=== PATIENT | male | born 1960 | race Caucasian/White ===

== ENCOUNTER 2018-06-27 08:59 | Day surgery (SDC) | payer OTHER, SELFPAY ==
--- NOTE | 2018-06-27 | PATH_ITS ---
[facility] Accession Number: [id number] . 01 Material submitted: . COLON POLYP AT 25CM . 02 Diagnosis: Colon, Polyp at 25 cm, Biopsy: Serrated lesion, favor sessile serrated adenoma. MRV/06/28/2018 . 02 Electronically signed: . Janiya Maddox MD, Pathologist NPI- [id number] . 01 Gross description: . Received one formalin-filled container labeled with the patient's name and labeled colon polyp at 25 cm. The specimen consists of a 0.6 cm portion of tissue, entirely submitted in one cassette. ([id number]) /FRR . 02 Pathologist provided ICD-10: D12.6 . 02 CPT . 677579 Performed at: 01 [facility] Located within [facility] [address] [id number] MD Forrest Kruger MD Phone: [phone] Performed at: 02 [facility] [place] [address] [place] [id number] MD Janiya Maddox MD Phone: [phone]
[2018-06-27 09:15] VITALS: BP 163/99; PULSE 66; RESP 14; TEMP 36.1; O2SAT 97; BMI 28.8
[2018-06-27] MEDS: LACTATED RINGERS 1,000 ML 42 ML IV (09:26)
--- NOTE | 2018-06-27 10:17 | PM.HP.1 ---
History of Present Illness Date Patient Seen: 06/27/18 Time Patient Seen: 10:18 Chief complaint: [id number] Narrative: Very pleasant 58-year-old gentleman who is never had a colonoscopy. He presents today for his 1st screening study. He reports that he has also had some difficulty with hemorrhoids and so we will be performing hemorrhoid banding at the same time. Patient History Medical History Lipoma (Acute) HTN (hypertension) (Chronic) Hearing deficit (Chronic) Hemorrhoids (Chronic) Shoulder pain (Chronic ~2015) Vision disorder (Chronic) Family & Social History Family History: Reviewed 06/27/18 by Rosenda Chew MD Social History: household members spouse,children Tobacco & Substance use: Smoking Status Former smoker alcohol intake current Meds Home Medications Medication Instructions Recorded Confirmed Type lisinopril 10 mg tablet 10 mg PO DAILY #90 tab 04/25/18 06/27/18 Rx Allergies Allergy/AdvReac Type Severity Reaction Status Date / Time No Known Drug Allergies Allergy Verified 05/08/18 10:04 Review of Systems Review of Systems All systems reviewed & are unremarkable except as noted in HPI and below Exam Vital Signs (past 8 hours): - 06/27/18 09:15 Temperature 97.0 F L Pulse Rate 66 Respiratory Rate 14 Blood Pressure 163/99 H Pulse Oximetry 97 Oxygen Delivery Method Room Air Narrative Exam Narrative: Pleasant and healthy-appearing gentleman in no distress HEENT: Normocephalic and atraumatic, pupils equal round reactive to light accommodation with anicteric sclera Lungs: Clear bilaterally Heart: Regular rate and rhythm Abdomen: Soft, nontender, active bowel sounds Extremities: Warm well perfused Assessment & Plan Plan: Assessment/Plan Narrative: Pleasant 58-year-old gentleman who is never had a colonoscopy and is having difficulty with internal hemorrhoids. We discussed the risks and benefits of colonoscopy under general anesthesia in association with examination under anesthesia and hemorrhoid banding. The patient expressed understanding of all these risks and desired to have the procedure.
--- NOTE | 2018-06-27 10:55 | P.OP_ITS ---
Operative Date/Time/Diagnoses Date of procedure: 06/27/18 Time of procedure: 10:54 Post-op diagnosis: same Procedure & Clinicians Procedure: Colonoscopy to the cecum with snare polypectomy Examination under anesthesia with hemorrhoid banding x2 Same procedure as scheduled: Yes Indications: No prior colonoscopy Surgeon: Rosenda Chew Click Yes if Unassisted: Yes Anesthesia Type: General (Dr. Cain) Operative Notes Findings: 1. Excellent prep 2. A single pedunculated 1 cm polyp at 25 cm from the anal verge. Removed with snare and cautery and retained for pathology 3. Minimal diverticulosis limited to the sigmoid region 4. Grade 3-4 internal hemorrhoid complex at the 7:00 a.m. Radian in lithotomy position. The remainder of the internal hemorrhoids were grade 1 or 2 5. Decreased anal sphincter tone Closure Type: not applicable Specimen(s): other (Polyp at 25 cm) Estimated Blood Loss (mL): 2 Procedure in detail: After obtaining informed consent, the patient was brought to the GI suite and placed in the left lateral decubitus position on the examination table. After placement of appropriate monitors, the patient received general anesthesia per Dr. Cain. A time out was held per SCOAP protocol. A digital rectal examination was performed and did not reveal any masses or obstructing lesions. The colonoscope was gently passed into the patient's anus and the entire colon navigated to the level of the cecum with minimal difficulty. Once in the cecum, the scope was withdrawn being sure to go before and beyond all mucosal folds and prominences and get an excellent examination. At 25 cm from the anal verge, we encountered a pedunculated polyp. This was snared and removed without difficulty. The stalk was notably narrow and the polyp was completely removed. Other findings are noted above. At the level of the rectal vault, the scope was retroflexed and the internal anal canal was examined. The scope was straightened and air aspirated from the colon. The instrument was removed from the patient's body and this portion of the procedure was concluded. We continued with examination under anesthesia. An anal retractor was placed in the anal canal revealing a enlarged prolapsing hemorrhoid complex at the 7:00 a.m. Radian. Using the hemorrhoid banding device , the complex was divided into 2 segments and a single band was placed on each segment. This effectively pulled the entire prolapsing hemorrhoid up into the anal canal. No bleeding was noted. The retractor was removed from the patient' s body. All sponge, needle, and instrument counts were correct at the conclusion of the case. The patient was allowed to awaken from sedation without difficulty and taken to the post-anesthesia care unit in good condition. Complications: none Condition: stable Disposition: PACU Plan for aftercare: 1. Discharge to home 2. Follow up with me in 2 weeks 3. Plan for next colonoscopy in 5 years or sooner depending upon final pathology
[2018-06-27 11:00] VITALS: BP 182/104; PULSE 79; RESP 10; TEMP 36.2; O2SAT 96
[2018-06-27 11:05] VITALS: BP 160/91; PULSE 72; RESP 12; O2SAT 96
[2018-06-27 11:10] VITALS: BP 165/110; PULSE 75; RESP 16; O2SAT 98
[2018-06-27 11:15] VITALS: BP 168/107; PULSE 74; RESP 22; O2SAT 98
[2018-06-27 11:33] VITALS: BP 162/105; PULSE 75; RESP 16; TEMP 36.5; O2SAT 95
--- NOTE | 2018-06-27 11:37 | SUR.PHASEII ---
pt is hypertensive with diastolic 100- 110 dr egan is aware and no additional measures are ordered. pt is seeing dr schwarz for treatment of BP
== END 2018-06-27 11:35 ==
LOC: OR 09:00
PROVIDERS: Family Provider Family Medicine; PCP Family Medicine; Visit Provider Surgery
PROC: 0DJD8ZZ Inspection of Lower Intestinal Tract, Via Natural or Artificial Opening Endoscopic (ICD-10-PCS; CPT 45378; principal; 2018-06-27 10:15)
DX: Z12.11 Encounter for screening for malignant neoplasm of colon (principal); K64.2 Third degree hemorrhoids; I10 Essential (primary) hypertension; Z87.891 Personal history of nicotine dependence; K57.30 Diverticulosis of large intestine without perforation or abscess without bleeding; D12.6 Benign neoplasm of colon, unspecified
CPT/HCPCS: 45385; 46221; J1100; J2405; J2704; J3010

== ENCOUNTER → 2018-08-06 07:55 | Outpatient (CLI) | payer OTHER, SELFPAY ==
[2018-08-06 09:00] LABS: Add Manual Diff / Slide Review NO; Basophils Absolute Auto 0 /uL (0-100); Basophils Percent Auto 0.8 % (0-2); Eosinophils Absolute Auto 100 /uL (0-450); Eosinophils Percent Auto 2.3 % (2-4); Hematocrit 43.5 % (41-53); Hemoglobin 15.6 g/dL (13.5-17.5); Lymphocytes Absolute Auto 1200 /uL (1100-4500); Lymphocytes Percent Auto 23.9 % (25-40); Mean Corpuscular Hemoglobin 30.4 PG (26-34); Mean Corpuscular Volume 84.6 fL (80-100); Monocytes Absolute Auto 400 /uL (0-900); Monocytes Percent Auto 8.1 % (3-14); Neutrophils Absolute Auto 3300 /uL (1500-7000); Neutrophils Percent Auto 64.9 % (50-75); Platelet Count 206 X10^3/uL (150-400); Red Blood Cell Count 5.14 X10^6/uL (4.5-5.9); Red Cell Distribution Width 13.2 % (11.6-14.8); White Blood Cell Count 5.1 X10^3/uL (4.5-11.0)
[2018-08-06 09:28] LABS: Alanine Aminotransferase 45 IU/L (21-72); Albumin 4.3 g/dL (3.5-5.0); Albumin Globulin Ratio 1.5 (1.0-2.8); Alkaline Phosphatase 94 U/L (38-126); Aspartate Aminotransferase 25 IU/L (17-59); Bilirubin Total 1.2 mg/dL (0.2-1.3); Blood Urea Nitrogen 9 mg/dL (9-20); Calcium 8.8 mg/dL (8.4-10.2); Carbon Dioxide 29 mmol/L (22-32); Chloride 104 mmol/L (98-107); Cholesterol 209 mg/dL (140-199); Estimated Glomerular Filt Rate > 60.0 mL/min (>60); Globulin 2.9 g/dL (1.7-4.1); Glucose 107 mg/dL (70-100); HDL Cholesterol 33 mg/dL (40-60); HEMOLYSIS < 15 (0-50); LDL Cholesterol Calculated 134 mg/dL (<100); Potassium 4.3 mmol/L (3.4-5.1); Sodium 141 mmol/L (137-145); Total Protein 7.2 g/dL (6.3-8.2); Triglycerides 209 mg/dL (35-150)
[2018-08-06 09:57] LABS: Thyroid Stimulating Hormone 2.06 uIU/mL (0.47-4.68)
[2018-08-06 10:26] LABS: Neutrophils Absolute Manual 3264 /uL (3000-5900); Total Cells Counted 100
[2018-08-06 10:28] LABS: RBC Morphology Normal Morphology
== END ==
PROVIDERS: Family Provider Family Medicine; PCP Family Medicine; Visit Provider Family Medicine
DX: E78.2 Mixed hyperlipidemia (principal); R03.0 Elevated blood-pressure reading, without diagnosis of hypertension; I10 Essential (primary) hypertension; Z12.5 Encounter for screening for malignant neoplasm of prostate
CPT/HCPCS: 36415; 80053; 80061; 84153; 84443; 85025; G0103

== ENCOUNTER → 2019-09-11 07:57 | Outpatient (CLI) | payer BC, SELFPAY ==
[2019-09-11 09:32] LABS: Add Manual Diff / Slide Review NO; Basophils Absolute Auto 0 /uL (0-100); Basophils Percent Auto 0.4 % (0-2); Eosinophils Absolute Auto 200 /uL (0-450); Eosinophils Percent Auto 2.8 % (2-4); Hematocrit 47.3 % (41-53); Hemoglobin 16.1 g/dL (13.5-17.5); Lymphocytes Absolute Auto 1200 /uL (1100-4500); Lymphocytes Percent Auto 21.8 % (25-40); Mean Corpuscular HGB Conc 34.1 % (30-36); Mean Corpuscular Hemoglobin 30.7 PG (26-34); Monocytes Absolute Auto 500 /uL (0-900); Monocytes Percent Auto 8.9 % (3-14); Neutrophils Absolute Auto 3600 /uL (1500-7000); Neutrophils Percent Auto 66.1 % (50-75); Platelet Count 190 X10^3/uL (150-400); Red Blood Cell Count 5.25 X10^6/uL (4.5-5.9); Red Cell Distribution Width 13.7 % (11.6-14.8); White Blood Cell Count 5.4 X10^3/uL (4.5-11.0)
[2019-09-11 10:04] LABS: Alanine Aminotransferase 56 IU/L (<50); Albumin 4.4 g/dL (3.5-5.0); Albumin Globulin Ratio 1.5 (1.0-2.8); Alkaline Phosphatase 108 U/L (38-126); Aspartate Aminotransferase 34 IU/L (17-59); BUN Creatinine Ratio 10.6 (6-22); Blood Urea Nitrogen 9 mg/dL (9-20); Calcium 8.9 mg/dL (8.4-10.2); Carbon Dioxide 29 mmol/L (22-32); Chloride 105 mmol/L (98-107); Cholesterol 228 mg/dL (140-199); Estimated Glomerular Filt Rate > 60.0 mL/min (>60); Glucose 100 mg/dL (70-100); HDL Cholesterol 26 mg/dL (40-60); HEMOLYSIS < 15 (0-50); Potassium 4.1 mmol/L (3.4-5.1); Sodium 141 mmol/L (137-145); Total Protein 7.4 g/dL (6.3-8.2); Triglycerides 436 mg/dL (35-150)
[2019-09-11 10:32] LABS: Thyroid Stimulating Hormone 2.01 uIU/mL (0.47-4.68)
== END ==
PROVIDERS: Family Provider Family Medicine; PCP Family Medicine; Referring Provider Family Medicine; Visit Provider Family Medicine
DX: E78.2 Mixed hyperlipidemia (principal)
CPT/HCPCS: 36415; 80053; 80061; 84443; 85025; G0103

== ENCOUNTER → 2019-12-11 10:29 | Outpatient (CLI) | payer BC, SELFPAY ==
[2019-12-11 11:44] LABS: Add Manual Diff / Slide Review NO; Basophils Absolute Auto 0 /uL (0-100); Basophils Percent Auto 0.4 % (0-2); Eosinophils Absolute Auto 100 /uL (0-450); Hematocrit 45.7 % (41-53); Hemoglobin 16.1 g/dL (13.5-17.5); Lymphocytes Absolute Auto 1000 /uL (1100-4500); Lymphocytes Percent Auto 20.7 % (25-40); Mean Corpuscular HGB Conc 35.3 % (30-36); Mean Corpuscular Hemoglobin 31.4 PG (26-34); Mean Corpuscular Volume 89.1 fL (80-100); Monocytes Absolute Auto 400 /uL (0-900); Monocytes Percent Auto 8.3 % (3-14); Neutrophils Absolute Auto 3400 /uL (1500-7000); Neutrophils Percent Auto 68.6 % (50-75); Platelet Count 178 X10^3/uL (150-400); Red Blood Cell Count 5.13 X10^6/uL (4.5-5.9); Red Cell Distribution Width 13.7 % (11.6-14.8); White Blood Cell Count 4.9 X10^3/uL (4.5-11.0)
[2019-12-11 12:19] LABS: Alanine Aminotransferase 43 IU/L (<50); Albumin 4.3 g/dL (3.5-5.0); Albumin Globulin Ratio 1.7 (1.0-2.8); Alkaline Phosphatase 99 U/L (38-126); Aspartate Aminotransferase 30 IU/L (17-59); BUN Creatinine Ratio 11.8 (6-22); Bilirubin Total 1.1 mg/dL (0.2-1.3); Blood Urea Nitrogen 9 mg/dL (9-20); Calcium 9.1 mg/dL (8.4-10.2); Carbon Dioxide 27 mmol/L (22-32); Chloride 105 mmol/L (98-107); Cholesterol 176 mg/dL (140-199); Estimated Glomerular Filt Rate > 60.0 mL/min (>60); Globulin 2.5 g/dL (1.7-4.1); Glucose 97 mg/dL (70-100); HDL Cholesterol 31 mg/dL (40-60); HEMOLYSIS < 15 (0-50); LDL Cholesterol Calculated 112 mg/dL (<100); Potassium 4.2 mmol/L (3.4-5.1); Sodium 139 mmol/L (137-145); Total Protein 6.8 g/dL (6.3-8.2); Triglycerides 164 mg/dL (35-150)
[2019-12-11 12:41] LABS: Prostate Specific Antigen Scrn 1.51 ng/mL (0.1-4.0)
== END ==
PROVIDERS: Family Provider Family Medicine; PCP Family Medicine; Referring Provider Family Medicine; Visit Provider Family Medicine
DX: E78.2 Mixed hyperlipidemia (principal); I10 Essential (primary) hypertension
CPT/HCPCS: 36415; 80053; 80061; 85025; G0103

== ENCOUNTER → 2020-01-22 10:00 | Outpatient (CLI) | payer BC, SELFPAY ==
[2020-01-22 10:42] LABS: Add Manual Diff / Slide Review NO; Basophils Absolute Auto 0 /uL (0-100); Basophils Percent Auto 0.4 % (0-2); Eosinophils Absolute Auto 100 /uL (0-450); Eosinophils Percent Auto 1.8 % (2-4); Hematocrit 45.8 % (41-53); Hemoglobin 15.6 g/dL (13.5-17.5); Lymphocytes Absolute Auto 1000 /uL (1100-4500); Mean Corpuscular HGB Conc 34.1 % (30-36); Mean Corpuscular Hemoglobin 30.3 PG (26-34); Mean Corpuscular Volume 88.7 fL (80-100); Monocytes Absolute Auto 400 /uL (0-900); Monocytes Percent Auto 9.1 % (3-14); Neutrophils Absolute Auto 3300 /uL (1500-7000); Neutrophils Percent Auto 68.7 % (50-75); Platelet Count 152 X10^3/uL (150-400); Red Blood Cell Count 5.16 X10^6/uL (4.5-5.9); Red Cell Distribution Width 13.6 % (11.6-14.8); White Blood Cell Count 4.8 X10^3/uL (4.5-11.0)
[2020-01-22 10:56] LABS: Amylase 60 U/L (30-110); BUN Creatinine Ratio 12.5 (6-22); Blood Urea Nitrogen 10 mg/dL (9-20); Calcium 8.8 mg/dL (8.4-10.2); Carbon Dioxide 30 mmol/L (22-32); Chloride 105 mmol/L (98-107); Estimated Glomerular Filt Rate > 60.0 mL/min (>60); Glucose 105 mg/dL (70-100); HEMOLYSIS < 15 (0-50); Lipase 82 U/L (23-300); Sodium 139 mmol/L (137-145)
[2020-01-22 10:57] LABS: Bacteria Urine None Seen; WBC Urine None Seen (0-5/HPF)
[2020-01-22 12:03] LABS: Appearance Urine UA CLEAR; Bilirubin Urine UA NEGATIVE (NEGATIVE); Color Urine UA YELLOW; Glucose Urine UA NEGATIVE (Negative); Ketones Urine UA NEGATIVE (NEGATIVE); Leukocyte Esterase Urine UA NEGATIVE (NEGATIVE); Nitrite Urine UA NEGATIVE (Negative); Occult Blood Urine UA NEGATIVE (Negative); Protein Urine UA NEGATIVE (Negative); Specific Gravity Urine UA 1.025 (1.000-1.035); Urobilinogen Urine UA 0.2 E.U./dL (0.2); pH Urine UA 5.5 (4.5-8.0)
[2020-01-22 12:19] LABS: Culture Indicated Urine Cult Not Indicated; RBC Urine 0-1/HPF (0-5/HPF)
== END ==
PROVIDERS: Family Provider Family Medicine; PCP Family Medicine; Referring Provider Family Medicine; Visit Provider Family Medicine
DX: I10 Essential (primary) hypertension (principal); R10.9 Unspecified abdominal pain
CPT/HCPCS: 36415; 80048; 81001; 82150; 83690; 85025

== ENCOUNTER → 2020-02-03 09:24 | Outpatient (CLI) | payer BC, SELFPAY ==
--- NOTE | 2020-02-03 10:19 | DI.CT.S_ITS ---
PROCEDURE: CT ABDOMEN PELVIS W CON INDICATIONS: Left Flank Pain TECHNIQUE: After the administration of oral and intravenous contrast, 5 mm thick sections acquired from the diaphragms to the symphysis. 5 mm thick coronal and sagittal reformats were performed. For radiation dose reduction, the following was used: automated exposure control, adjustment of mA and/or kV according to patient size. COMPARISON: None. FINDINGS: Image quality: Excellent. ABDOMEN: Lung bases: Lung bases are clear. Heart size is normal. Solid organs: Evaluation of the liver demonstrates no focal hepatic lesions. The gallbladder appears within normal limits without calcified gallstones. Biliary system is non-dilated. Pancreas enhances normally. No peripancreatic fat stranding or fluid collections. No pancreatic duct dilatation. The spleen is normal in size. No adrenal nodules. Kidneys demonstrate no hydronephrosis. There is mild nonspecific perinephric stranding bilaterally. A small hypodensity is demonstrated peripherally in the left kidney measuring up to 0.5 cm, too small to characterize but likely representing a cyst. Peritoneum and bowel: Stomach, small bowel, and colon loops are normal in caliber and wall thickness. The appendix is normal in appearance. No free fluid or air. Nodes and vessels: No retroperitoneal or mesenteric adenopathy. Aorta and inferior vena cava are normal in caliber. Miscellaneous: No ventral hernias. PELVIS: Genitourinary: Bladder wall thickness is normal. Miscellaneous: No inguinal hernias or adenopathy. Bones: No suspicious bony lesions. No vertebral body compression fractures. IMPRESSION: 1. No definite acute intra-abdominal abnormality. Specifically, no evidence of hydronephrosis. Dictated by: Forrest William M.D. on 02/03/2020 at 12:17 Approved by: Forrest William M.D. on 02/03/2020 at 12:41
== END ==
PROVIDERS: Family Provider Family Medicine; PCP Family Medicine; Referring Provider Family Medicine; Visit Provider Family Medicine
DX: R10.9 Unspecified abdominal pain (principal); I10 Essential (primary) hypertension
CPT/HCPCS: 74177; Q9967

== ENCOUNTER 2021-02-07 10:35 | Emergency (ER) | payer BC, SELFPAY ==
[2021-02-07] VITALS (13 sets, daily range): BP systolic 127–168; BP diastolic 72–107; PULSE 70–80; RESP 10–23; TEMP 36.8; O2SAT 95–98; BMI 29.8
--- NOTE | 2021-02-07 10:45 | DI.RAD.S_ITS ---
PROCEDURE: XR CHEST 1V INDICATIONS: chest pain TECHNIQUE: One view of the chest was acquired. COMPARISON: None. FINDINGS: Surgical changes and devices: None. Lungs and pleura: Lungs are clear. No pleural effusions or pneumothorax. Mediastinum: Mediastinal contours appear normal. Heart size is normal. Bones and chest wall: No suspicious bony lesions. Overlying soft tissues appear unremarkable. IMPRESSION: No acute cardiopulmonary findings Approved by: Jones Butcher M.D. on 02/07/2021 at 10:43
--- NOTE | 2021-02-07 10:48 | ED.GENADULT ---
HPI - General Adult General Chief complaint: Chest Pain Stated complaint: chest pains Time Seen by Provider: 02/07/21 10:46 History of Present Illness HPI narrative: Gentleman with history of hypertension presents complaining of dyspnea. He awoke from sleep at 2:00 a.m. this morning with a description of painful breathing and a sensation that he could not get a full breath had difficulty laying flat was diaphoretic. He went outside to help cool down readjusted is bed and found a more comfortable position sitting slightly elevated and was able to get back to sleep with dreams of increasing pressure over his chest. He is concerned with COVID. He has been fully vaccinated however his older daughter was recently at a fair with exposure to multiple people(she does not live at home and is not currently symptomatic). At 6:00 a.m. he woke up and noted no significant pain he has bit of tightness in his upper chest with deep breathing does not describe significant exertional dyspnea but states that he ?certainly wont be running today?. He describes no palpitations, no lower chest pain or GI symptoms. He does not describe any recent cough, fevers notes no change to taste he has had a slight decrease in appetite and did not have breakfast this morning. He has been taking his amlodipine and losartan as prescribed. No recent nausea, vomiting, diarrhea, headaches or neurologic changes. He notes that he occasionally has lower extremity edema that he attributes to his amlodipine. Related Data Previous Rx's Medication Instructions Recorded amlodipine 5 mg tablet 10 mg PO DAILY #180 tab 12/11/19 losartan 50 mg tablet 50 mg PO DAILY #90 tab 12/11/19 Allergies Allergy/AdvReac Type Severity Reaction Status Date / Time atorvastatin AdvReac Mild [place] like Verified 01/21/20 14:47 Skin was burning. Review of Systems Review of Systems Narrative: Remainder of complete review of systems is otherwise unremarkable except for that included in the HPI. Patient History Medical History (Updated 02/07/21 @ 15:36 by Veena Covington MD) Hearing deficit Hemorrhoids HTN (hypertension) Lipoma Shoulder pain (~2014) Vision disorder Family History Father No problems noted. Mother Cancer Social History marital status: household members: spouse and children occupational status: employed Smoking Status: Former smoker alcohol intake: current substance use type: does not use Smoking Status: Former smoker Exam Narrative Exam Narrative: General: Healthy appearing, in no acute distress. Able to give a complete and coherent history. Well-nourished well-developed HEENT: Moist mucous membranes, normal sclera with reactive pupils, good color and no diaphoresis Neck: No JVD, supple Respiratory: Lungs are clear to auscultation, no wheezing no rales no rhonchi. Full and symmetrical air movement Cardiac: Regular rate and rhythm no murmurs no bruits Abdomen: Soft, nontender, good bowel tones, no flank pain Skin: Warm and dry, no rashes Neurologic: Grossly neurologically intact with no obvious asymmetries or abnormalities Extremities: No trauma, well perfused Psych: Cooperative, appropriate insight and affect Initial Vital Signs Initial Vital Signs: Vital Signs Temperature 98.2 F 02/07/21 10:40 Pulse Rate 76 02/07/21 10:40 Respiratory Rate 18 02/07/21 10:40 Blood Pressure 168/107 H 02/07/21 10:40 Pulse Oximetry 97 02/07/21 10:40 Course Orders Ordered: ED Orders 02/07/21 10:45 XR chest 1V Stat EKG-12 Lead Stat 02/07/21 11:00 COVID19 -Nasal swab/Pre-Proc Stat Complete Blood Count AUTO DIFF Stat Comprehensive Metabolic Panel Stat D Dimer Stat Lipase Stat Troponin & CK Cardiac Panel Stat 02/07/21 13:34 CT angio chest PE protocol Stat 02/07/21 13:40 Troponin I Stat Nitroglycerin (Nitroglycerin 0.4 Mg Sl Tab) 0.4 mg SL [id number] PRN PRN Reason: Chest Pain Last Admin: 02/07/21 11:26 Dose: 0.4 mg Documented by: MERCEDEZ Discontinued Medications Aspirin (Aspirin 81 Mg Chew Tab) 324 mg PO NOW ONE Stop: 02/07/21 11:02 Last Admin: 02/07/21 11:25 Dose: 324 mg Documented by: MERCEDEZ Vital Signs Vital signs: Vital Signs - 8 hr 02/07/21 10:40 02/07/21 11:02 02/07/21 11:26 Temperature 98.2 F Pulse Rate 76 73 78 Respiratory Rate 18 15 Blood Pressure 168/107 H 156/93 H 156/93 H Pulse Oximetry 97 95 02/07/21 11:30 02/07/21 12:00 02/07/21 12:30 Temperature Pulse Rate 77 72 73 Respiratory Rate 19 10 L 17 Blood Pressure 140/89 133/82 144/92 H Pulse Oximetry 96 98 98 02/07/21 13:00 02/07/21 13:30 02/07/21 14:00 Temperature Pulse Rate 72 73 71 Respiratory Rate 20 19 18 Blood Pressure 132/84 127/72 129/83 Pulse Oximetry 98 96 96 02/07/21 14:34 02/07/21 14:36 02/07/21 15:00 Temperature Pulse Rate 80 73 70 Respiratory Rate 23 19 17 Blood Pressure 164/99 H Pulse Oximetry 98 97 98 Medical Decision Making Lab Data Result diagrams: 02/07/21 11:00 02/07/21 11:00 Labs: Lab Results 02/07/21 02/07/21 02/07/21 Range/Units 11:00 11:00 11:00 WBC 9.7 (4.5-11.0) X10^3/uL RBC 5.45 (4.5-5.9) X10^6/uL Hgb 16.3 (13.5-17.5) g/dL Hct 47.6 (41-53) % MCV 87.5 (80-100) fL MCH 30.0 (26-34) PG MCHC 34.3 (30-36) % RDW 13.3 (11.6-14.8) % Plt Count 171 (150-400) X10^3/uL Neut % (Auto) 81.8 H (50-75) % Lymph % (Auto) 7.3 L (25-40) % [place] % (Auto) 10.3 (3-14) % Eos % (Auto) 0.1 L (2-4) % Baso % (Auto) 0.5 (0-2) % Neut # (Auto) 7900 H (5625-3041) /uL Lymph # (Auto) 700 L (1400-1930) /uL [place] # (Auto) 1000 H (0-900) /uL Eos # (Auto) 0 (0-450) /uL Baso # (Auto) 0 (0-100) /uL D-Dimer (<230) ng/mL Sodium 140 (137-145) mmol/L Potassium 3.9 (3.4-5.1) mmol/L Chloride 107 (98-107) mmol/L Carbon Dioxide 25 (22-32) mmol/L BUN 8 L (9-20) mg/dL Creatinine 0.73 (0.66-1.25) mg/dL Estimated GFR > 60.0 (>60) mL/min BUN/Creatinine Ratio 11.0 (6-22) Glucose 120 H (70-100) mg/dL Calcium 9.2 (8.4-10.2) mg/dL Total Bilirubin 1.8 H (0.2-1.3) mg/dL AST 30 (17-59) IU/L ALT 36 (<50) IU/L Alkaline Phosphatase 110 (38-126) U/L Total Creatine Kinase 179 H (55-170) U/L CK-MB (CK-2) 1.14 (<2.37) ng/mL CK-MB (CK-2) Rel Index 0.6 L (1.5-5.0) % Troponin I < 0.012 (0.01-0.034) ng/mL Total Protein 7.5 (6.3-8.2) g/dL Albumin 4.4 (3.5-5.0) g/dL Globulin 3.1 (1.7-4.1) g/dL Albumin/Globulin Ratio 1.4 (1.0-2.8) Lipase 36 (23-300) U/L SARS-CoV-2 (PCR) Negative (Negative) 02/07/21 02/07/21 Range/Units 11:00 13:40 WBC (4.5-11.0) X10^3/uL RBC (4.5-5.9) X10^6/uL Hgb (13.5-17.5) g/dL Hct (41-53) % MCV (80-100) fL MCH (26-34) PG MCHC (30-36) % RDW (11.6-14.8) % Plt Count (150-400) X10^3/uL Neut % (Auto) (50-75) % Lymph % (Auto) (25-40) % [place] % (Auto) (3-14) % Eos % (Auto) (2-4) % Baso % (Auto) (0-2) % Neut # (Auto) (6265-7866) /uL Lymph # (Auto) (0810-4728) /uL [place] # (Auto) (0-900) /uL Eos # (Auto) (0-450) /uL Baso # (Auto) (0-100) /uL D-Dimer 407 H (<230) ng/mL Sodium (137-145) mmol/L Potassium (3.4-5.1) mmol/L Chloride (98-107) mmol/L Carbon Dioxide (22-32) mmol/L BUN (9-20) mg/dL Creatinine (0.66-1.25) mg/dL Estimated GFR (>60) mL/min BUN/Creatinine Ratio (6-22) Glucose (70-100) mg/dL Calcium (8.4-10.2) mg/dL Total Bilirubin (0.2-1.3) mg/dL AST (17-59) IU/L ALT (<50) IU/L Alkaline Phosphatase (38-126) U/L Total Creatine Kinase (55-170) U/L CK-MB (CK-2) (<2.37) ng/mL CK-MB (CK-2) Rel Index (1.5-5.0) % Troponin I < 0.012 (0.01-0.034) ng/mL Total Protein (6.3-8.2) g/dL Albumin (3.5-5.0) g/dL Globulin (1.7-4.1) g/dL Albumin/Globulin Ratio (1.0-2.8) Lipase (23-300) U/L SARS-CoV-2 (PCR) (Negative) Imaging Data PE study: Radiologist's Impression: FINDINGS: Image quality: Excellent. Pulmonary arteries: Pulmonary arteries are normal in size, and demonstrate no intraluminal filling defects to suggest central pulmonary embolism. Lungs and pleura: Lungs are clear. No pleural effusions or pneumothorax. Central and peripheral airways are patent. Mediastinum: Heart size is normal, without pericardial effusion. No mediastinal or hilar adenopathy. Thoracic aorta is normal in caliber and enhancement. Esophagus is normal in caliber. There is a small hiatal hernia. Bones and chest wall: No suspicious bony lesions. Ribs and thoracic spine appear intact throughout. Thyroid gland demonstrates no significant abnormality. No axillary or supraclavicular adenopathy. Abdomen: Visualized upper abdominal solid organs appear normal in the early arterial phase of enhancement. IMPRESSION: Negative for pulmonary embolism. Incidental note is made of: Small hiatal hernia Dictated by: Maciel Quintanilla M.D. on 02/07/2021 at 14:13 MDM Narrative Medical decision making narrative: 60-year-old gentleman with history of hypertension presents with upper chest pressure. No evidence of acute coronary syndrome with negative EKG make negative troponin x2 and history not compelling leak convincing for cardiac symptoms. No evidence of infectious etiology, pneumothorax, aortic dissection or pulmonary embolism. Findings reviewed with patient, he is actually feeling significantly improved time of discharge and he is safe to go home Discharge Plan Departure Patient Disposition: Home Clinical Impression: Atypical chest pain Instructions: DI for Atypical Chest Pain Activity Restrictions/Additional Instructions: Thank you for coming in today I am not finding any life-threatening explanation for the symptoms that your having in her chest today You do not have COVID he did not have pneumonia he did not have blood clots in your lungs. There is no evidence of a heart attack or heart attack like syndrome. Your lab work was entirely reassuring as was your x-ray and CT scan Please make sure you do schedule an appointment with a new primary care provider to follow-up on your blood pressure. At this time, I think it is safe for you to go home. If you have new or worsening symptoms please feel free to return to the ER and I am happy to re-evaluate. Prescriptions: No Action amlodipine 5 mg tablet 10 mg PO DAILY Qty: 180 RF: 3 losartan 50 mg tablet 50 mg PO DAILY Qty: 90 RF: 3 Referrals: Kirk Drummond MD [Primary Care Provider] -
[2021-02-07 11:08] LABS: Add Manual Diff / Slide Review NO; Basophils Absolute Auto 0 /uL (0-100); Basophils Percent Auto 0.5 % (0-2); Eosinophils Absolute Auto 0 /uL (0-450); Eosinophils Percent Auto 0.1 % (2-4); Hematocrit 47.6 % (41-53); Hemoglobin 16.3 g/dL (13.5-17.5); Lymphocytes Absolute Auto 700 /uL (1100-4500); Lymphocytes Percent Auto 7.3 % (25-40); Mean Corpuscular HGB Conc 34.3 % (30-36); Mean Corpuscular Volume 87.5 fL (80-100); Monocytes Absolute Auto 1000 /uL (0-900); Monocytes Percent Auto 10.3 % (3-14); Neutrophils Absolute Auto 7900 /uL (1500-7000); Neutrophils Percent Auto 81.8 % (50-75); Platelet Count 171 X10^3/uL (150-400); Red Blood Cell Count 5.45 X10^6/uL (4.5-5.9); Red Cell Distribution Width 13.3 % (11.6-14.8); White Blood Cell Count 9.7 X10^3/uL (4.5-11.0)
[2021-02-07 11:23] LABS: Alanine Aminotransferase 36 IU/L (<50); Albumin 4.4 g/dL (3.5-5.0); Albumin Globulin Ratio 1.4 (1.0-2.8); Alkaline Phosphatase 110 U/L (38-126); Aspartate Aminotransferase 30 IU/L (17-59); Bilirubin Total 1.8 mg/dL (0.2-1.3); Blood Urea Nitrogen 8 mg/dL (9-20); Calcium 9.2 mg/dL (8.4-10.2); Carbon Dioxide 25 mmol/L (22-32); Chloride 107 mmol/L (98-107); Creatine Kinase 179 U/L (55-170); Estimated Glomerular Filt Rate > 60.0 mL/min (>60); Globulin 3.1 g/dL (1.7-4.1); Glucose 120 mg/dL (70-100); HEMOLYSIS < 15 (0-50); Lipase 36 U/L (23-300); Potassium 3.9 mmol/L (3.4-5.1); Sodium 140 mmol/L (137-145); Total Protein 7.5 g/dL (6.3-8.2)
[2021-02-07 11:25] LABS: COVID19 -Nasal RAPID Negative (Negative)
[2021-02-07] MEDS: ASPIRIN 81 MG CHEW TAB 324 MG PO (11:25)
[2021-02-07] MEDS: NITROGLYCERIN 0.4 MG SL TAB SL (11:26)
[2021-02-07 11:33] LABS: Troponin I < 0.012 ng/mL (0.01-0.034)
[2021-02-07 11:38] LABS: CKMB % Relative Index 0.6 % (1.5-5.0); Creatine Kinase MB 1.14 ng/mL (<2.37)
[2021-02-07 12:19] LABS: D Dimer 407 ng/mL (<230)
--- NOTE | 2021-02-07 13:34 | DI.CT.S_ITS ---
PROCEDURE: CT ANGIO CHEST PE PROTOCOL INDICATIONS: dyspnea, elevated d dimer TECHNIQUE: After the administration of intravenous contrast, 2 mm thick sections acquired from the pulmonary apices to the posterior costophrenic angles. 3-dimensional maximum intensity projection (MIP) coronal and sagittal reformats were then acquired through the thorax. For radiation dose reduction, the following was used: automated exposure control, adjustment of mA and/or kV according to patient size. COMPARISON: [facility], CT, CT ABDOMEN PELVIS W CON, 02/03/2020, 10:18. [facility], CR, XR CHEST 1V, 02/07/2021, 11:08. FINDINGS: Image quality: Excellent. Pulmonary arteries: Pulmonary arteries are normal in size, and demonstrate no intraluminal filling defects to suggest central pulmonary embolism. Lungs and pleura: Lungs are clear. No pleural effusions or pneumothorax. Central and peripheral airways are patent. Mediastinum: Heart size is normal, without pericardial effusion. No mediastinal or hilar adenopathy. Thoracic aorta is normal in caliber and enhancement. Esophagus is normal in caliber. There is a small hiatal hernia. Bones and chest wall: No suspicious bony lesions. Ribs and thoracic spine appear intact throughout. Thyroid gland demonstrates no significant abnormality. No axillary or supraclavicular adenopathy. Abdomen: Visualized upper abdominal solid organs appear normal in the early arterial phase of enhancement. IMPRESSION: Negative for pulmonary embolism. Incidental note is made of: Small hiatal hernia Dictated by: Maciel Quintanilla M.D. on 02/07/2021 at 14:13 Approved by: aMciel Quintanilla M.D. on 02/07/2021 at 14:15
[2021-02-07 14:09] LABS: Troponin I < 0.012 ng/mL (0.01-0.034)
== END 2021-02-07 15:42 | disposition home or self-care (01) ==
PROVIDERS: Emergency Provider Emergency Medicine; Family Provider Family Medicine; PCP Family Medicine
DX: R07.89 Other chest pain (principal); R06.02 Shortness of breath; Z20.822 Contact with and (suspected) exposure to COVID-19
CPT/HCPCS: 36415; 71045; 71275; 80053; 82550; 82553; 83690; 84484; 85025; 85379; 87635; 93005; 93010; 99284; C9803; Q9967

== ENCOUNTER → 2021-02-18 11:37 | Outpatient (CLI) | payer BC, SELFPAY ==
[2021-02-18 13:20] LABS: Alanine Aminotransferase 36 IU/L (<50); Albumin 4.1 g/dL (3.5-5.0); Albumin Globulin Ratio 1.6 (1.0-2.8); Alkaline Phosphatase 93 U/L (38-126); Aspartate Aminotransferase 26 IU/L (17-59); BUN Creatinine Ratio 11.8 (6-22); Bilirubin Total 0.8 mg/dL (0.2-1.3); Blood Urea Nitrogen 9 mg/dL (9-20); Carbon Dioxide 26 mmol/L (22-32); Chloride 106 mmol/L (98-107); Cholesterol 178 mg/dL (140-199); Estimated Glomerular Filt Rate > 60.0 mL/min (>60); Globulin 2.6 g/dL (1.7-4.1); Glucose 97 mg/dL (70-100); HDL Cholesterol 35 mg/dL (40-60); HEMOLYSIS < 15 (0-50); LDL Cholesterol Calculated 120 mg/dL (<100); Potassium 4.2 mmol/L (3.4-5.1); Sodium 139 mmol/L (137-145); Total Protein 6.7 g/dL (6.3-8.2); Triglycerides 114 mg/dL (35-150)
[2021-02-18 13:48] LABS: Prostate Specific Antigen Scrn 1.53 ng/mL (0.1-4.0)
[2021-02-18 13:50] LABS: TSH w/ Reflex to FT4 2.27 uIU/mL (0.47-4.68)
[2021-02-18 14:18] LABS: Creatinine Urine Random 107.3 mg/dL
[2021-02-18 14:24] LABS: Microalbumin Urine Random 1.4 mg/dL (0-1.6)
== END ==
PROVIDERS: Family Provider Family Medicine; PCP Family Medicine; Referring Provider Family Medicine; Visit Provider Family Medicine
DX: E78.2 Mixed hyperlipidemia (principal); I10 Essential (primary) hypertension; R17 Unspecified jaundice; Z12.5 Encounter for screening for malignant neoplasm of prostate
CPT/HCPCS: 36415; 80053; 80061; 82043; 82570; 84443; G0103

== ENCOUNTER → 2021-03-31 09:24 | Outpatient (CLI) | payer BC, SELFPAY ==
[2021-03-31 11:28] LABS: COVID19 -Nasal RAPID Negative (Negative)
== END ==
PROVIDERS: Family Provider Family Medicine; PCP Family Medicine; Referring Provider Surgery; Visit Provider Surgery
DX: Z20.822 Contact with and (suspected) exposure to COVID-19 (principal); Z01.812 Encounter for preprocedural laboratory examination
CPT/HCPCS: 87635; C9803

== ENCOUNTER 2021-04-01 14:19 | Day surgery (SDC) | payer BC, SELFPAY ==
[2021-04-01 14:33] VITALS: BP 172/107; PULSE 84; RESP 18; TEMP 36.2; O2SAT 98; BMI 29.1
[2021-04-01] MEDS: LACTATED RINGERS 1,000 ML 200 ML IV (14:41)
--- NOTE | 2021-04-01 15:00 | P.HP_ITS ---
History of Present Illness History of Present Illness Date Patient Seen: 04/01/21 Time Patient Seen: 15:00 Chief complaint: SDC Narrative: The patient presents for colorectal sreening. Previous colonoscopy 2018 demonstrated a sessile serrated lesion. No personal or family history of colon cancer. On further history denies any recent gastrointestinal symptoms. No nausea, vomiting, abdominal pain, loss of appetite, unexplained weight loss, change in bowel habits, diarrhea, constipation, melena, hematochezia, or bright red blood per rectum. Patient History Medical History Essential hypertension (~2019) Hearing deficit Hemorrhoids HTN (hypertension) Lip[place] Shoulder pain (~2014) Tinnitus Vision disorder Family & Social History Family History Father No problems noted. Mother Cancer Social History: household members spouse,children Tobacco & Substance use: Tobacco type cigarettes Smoking Status Former smoker alcohol intake current alcohol intake frequency 0-2 drinks per day Substance Use Type does not use Meds Home Medications and Allergies Home Medications Medication Instructions Recorded Confirmed Type No Known Home Medications 04/01/21 04/01/21 History Allergies Allergy/AdvReac Type Severity Reaction Status Date / Time atorvastatin AdvReac Mild [place] like Verified 03/22/21 14:23 Skin was burning. Exam Vital Signs (past 8 hours): - 04/01/21 14:33 Temperature 97.2 F L Pulse Rate 84 Respiratory Rate 18 Blood Pressure 172/107 H Pulse Oximetry 98 Oxygen Delivery Method Room Air Narrative Exam Narrative: Constitutional-She is oriented to person, place and time. No apparent distress Cardiovascular- regular rate, no peripheral edema Pulmonary-unlabored respiratory effort, no audible wheezing Abdominal-soft, non-tender, non-distended Musculoskeletal-no cyanosis or clubbing Neurological-nonfocal, normal strength throughout, Skin-warm and dry Assessment & Plan Assessment and plan (1) Personal history of colonic polyps: Status: Acute Assessment & Plan narrative: The patient requires colorectal screening and colonoscopy is recommended. Technical details were discussed. Risks, benefits, alternatives explained. Risks including but not limited to myocardial infarction, aspiration, bleeding, pain, missed lesion, incomplete examination, need for further radiographic studies, colonic perforation, and need for major abdominal surgery were discussed. All questions were answered to their satisfaction, and they are in agreement with this plan. Time Spent With Patient Critical Care time: I spent a total of [] minutes of critical care time on this patient's care today; this time is exclusive of procedural time.
[2021-04-01] MEDS: MIDAZOLAM 5 MG/5 ML VIAL IV (15:19)
[2021-04-01] MEDS: fentaNYL 250 MCG/5 ML INJ IV (15:44)
--- NOTE | 2021-04-01 16:02 | PM.OP.COLON ---
Operative Date/Time/Diagnoses Date of procedure: 04/01/21 Time of procedure: 16:02 Pre-op diagnosis: Personal history of colonic polyps Post-op diagnosis: same Procedure & Clinicians Study performed: Sigmoidoscopy. Incomplete colonoscopy Indications: Personal history of colonic polyps Procedure Notes Procedure in detail: Medications: Conscious sedation using 10mg IV midazolam and 250mcg IV of fentanyl The history and physical was performed/updated and the patient is ASA class is 2. The procedure was discussed in detail with the patient. Potential risks complications including infection, bleeding, missed diagnosis, perforation, need for surgery, and were explained. Their questions were answered and informed consent was obtained. Patient was brought to the procedure room and placed standard monitoring equipment. The patient's vital signs were monitored continuously throughout the entire procedure. Prior to starting time-out was performed. The patient was placed in the left lateral recumbent position. Procedural sedation was administered. Examination began with a thorough inspection of the perianal area there was no evidence of fissures, fistulae, external hemorrhoids or cutaneous malignancy. The colonoscopy scope was then placed into the anal canal and was advanced to the ascending colon. Despite numerous attempts at patient repositioning stiffing the scope and copious irrigation I could not intubate the cecum. The scope was then slowly withdrawn examining colon thoroughly in all directions, irrigating it of any residual stool. FINDINGS 1.No masses or polyps 2. Tortous colon The patient tolerated the procedure well. They will be discharged once criteria are met. The prep was of good/excellent quality. The withdrawl time was 6 minutes. The sedation time was 50 minutes. Specimen(s): none sent Complications: none Impression: normal sigmoidoscopy. Incomplete colonoscopy Post-procedure Plan for aftercare: barium enema Disposition: same day surgery
[2021-04-01 16:04] VITALS: BP 160/102; PULSE 85; RESP 17; TEMP 36.5; O2SAT 94
[2021-04-01 16:10] VITALS: BP 155/98; PULSE 82; RESP 17; TEMP 36.3; O2SAT 94
[2021-04-01 16:14] VITALS: BP 147/95; PULSE 77; RESP 14; TEMP 36.5; O2SAT 95
[2021-04-01 16:18] VITALS: BP 146/102; PULSE 73; RESP 16; TEMP 36.5; O2SAT 95
[2021-04-01 17:10] VITALS: BP 135/78; PULSE 78; RESP 18; TEMP 37.1; O2SAT 97
== END 2021-04-01 16:45 | disposition home or self-care (01) ==
PROVIDERS: Family Provider Family Medicine; PCP Family Medicine; Referring Provider Surgery; Visit Provider Surgery
PROC: 0DJD8ZZ Inspection of Lower Intestinal Tract, Via Natural or Artificial Opening Endoscopic (ICD-10-PCS; CPT 45378; principal; 2021-04-01 15:15)
DX: Z12.11 Encounter for screening for malignant neoplasm of colon (principal); Z86.010 Personal history of colon polyps; I10 Essential (primary) hypertension; Z53.09 Procedure and treatment not carried out because of other contraindication
CPT/HCPCS: 45378; 99152; 99153; J2250; J3010

== ENCOUNTER → 2021-11-25 07:39 | Outpatient (CLI) | payer BC, SELFPAY ==
--- NOTE | 2021-11-25 07:40 | DI.US.S_ITS ---
PROCEDURE: US ABDOMEN LIMITED INDICATIONS: LOWER BACK MASS TECHNIQUE: Real-time focused scanning was performed of the abdomen, with image documentation. COMPARISON: [facility], CT, CT ABDOMEN PELVIS W CON, 02/03/2020, 10:18. [facility], US, ABDOMEN LIMITED, 03/24/2009, 8:14. FINDINGS: Scanning is performed at the area of clinical concern involving the palpable region of the left lower back. At this site, there is an ovoid focus within the subcutaneous fat with an echotexture similar to the surrounding normal fat. No abnormal vascularity can be seen. This measures 4.1 x 4.1 x 0.8 cm. IMPRESSION: Likely lipoma seen at the area of clinical concern. Dictated by: Maciel Quintanilla M.D. on 11/25/2021 at 9:02 Approved by: Maciel Quintanilla M.D. on 11/25/2021 at 9:04
== END ==
PROVIDERS: Family Provider Family Medicine; PCP Family Medicine; Referring Provider Family Medicine; Visit Provider Family Medicine
DX: R22.2 Localized swelling, mass and lump, trunk (principal)
CPT/HCPCS: 76705

== ENCOUNTER → 2022-01-19 07:55 | Outpatient (CLI) | payer BC, SELFPAY ==
[2022-01-19 08:43] LABS: Add Manual Diff / Slide Review NO; Basophils Absolute Auto 0 /uL (0-100); Basophils Percent Auto 0.5 % (0-2); Eosinophils Absolute Auto 100 /uL (0-450); Eosinophils Percent Auto 2.6 % (2-4); Hematocrit 42.6 % (41-53); Hemoglobin 14.9 g/dL (13.5-17.5); Lymphocytes Absolute Auto 1100 /uL (1100-4500); Lymphocytes Percent Auto 23.7 % (25-40); Mean Corpuscular Hemoglobin 30.3 PG (26-34); Mean Corpuscular Volume 86.6 fL (80-100); Monocytes Absolute Auto 600 /uL (0-900); Monocytes Percent Auto 11.6 % (3-14); Neutrophils Absolute Auto 3000 /uL (1500-7000); Neutrophils Percent Auto 61.6 % (50-75); Platelet Count 159 X10^3/uL (150-400); Red Blood Cell Count 4.92 X10^6/uL (4.5-5.9); Red Cell Distribution Width 13.8 % (11.6-14.8); White Blood Cell Count 4.9 X10^3/uL (4.5-11.0)
[2022-01-19 08:57] LABS: Alanine Aminotransferase 33 IU/L (<50); Albumin 4.2 g/dL (3.5-5.0); Albumin Globulin Ratio 1.6 (1.0-2.8); Alkaline Phosphatase 72 U/L (38-126); Aspartate Aminotransferase 26 IU/L (17-59); BUN Creatinine Ratio 14.3 (6-22); Bilirubin Total 1.1 mg/dL (0.2-1.3); Blood Urea Nitrogen 13 mg/dL (9-20); Calcium 8.6 mg/dL (8.4-10.2); Carbon Dioxide 27 mmol/L (22-32); Chloride 104 mmol/L (98-107); Cholesterol 206 mg/dL (140-199); Estimated Glomerular Filt Rate > 60 mL/min (>60); Globulin 2.6 g/dL (1.7-4.1); Glucose 105 mg/dL (80-110); HDL Cholesterol 36 mg/dL (40-60); HEMOLYSIS < 15 (0-50); LDL Cholesterol Calculated 129 mg/dL (<100); Sodium 139 mmol/L (137-145); Total Protein 6.8 g/dL (6.3-8.2); Triglycerides 204 mg/dL (35-150)
[2022-01-19 09:29] LABS: TSH w/ Reflex to FT4 2.64 uIU/mL (0.47-4.68)
[2022-01-19 09:31] LABS: Prostate Specific Antigen Scrn 1.66 ng/mL (0.1-4.0)
[2022-01-19 09:54] LABS: Microalbumin Urine Random 1.8 mg/dL (0-1.6)
[2022-01-19 10:07] LABS: Creatinine Urine Random 179.7 mg/dL
[2022-01-19 12:41] LABS: Appearance Urine UA CLEAR; Bilirubin Urine UA NEGATIVE (NEGATIVE); Color Urine UA YELLOW; Glucose Urine UA NEGATIVE (Negative); Ketones Urine UA TRACE (NEGATIVE); Leukocyte Esterase Urine UA TRACE (NEGATIVE); Nitrite Urine UA NEGATIVE (Negative); Occult Blood Urine UA NEGATIVE (Negative); Protein Urine UA TRACE (Negative); Specific Gravity Urine UA 1.025 (1.000-1.035); Urobilinogen Urine UA 0.2 E.U./dL (0.2)
[2022-01-19 12:49] LABS: Amorphous Sediment Urine 1+; Bacteria Urine Few (2-10); Culture Indicated Urine Specimen Cultured; RBC Urine 0-1/HPF (0-5/HPF); WBC Urine 1-5/HPF (0-5/HPF)
== END ==
PROVIDERS: Family Provider Family Medicine; PCP Family Medicine; Referring Provider Family Medicine; Visit Provider Family Medicine
DX: E78.2 Mixed hyperlipidemia (principal); I10 Essential (primary) hypertension; Z12.5 Encounter for screening for malignant neoplasm of prostate
CPT/HCPCS: 36415; 80053; 80061; 81001; 82043; 82570; 84443; 85025; 87086; G0103

== ENCOUNTER → 2022-07-21 08:38 | Outpatient (CLI) | payer BC, SELFPAY ==
[2022-07-21 09:52] LABS: Add Manual Diff / Slide Review NO; Basophils Absolute Auto 0 /uL (0-100); Basophils Percent Auto 0.5 % (0-2); Eosinophils Absolute Auto 100 /uL (0-450); Hematocrit 46.2 % (41-53); Hemoglobin 15.2 g/dL (13.5-17.5); Lymphocytes Absolute Auto 1300 /uL (1100-4500); Lymphocytes Percent Auto 26.6 % (25-40); Mean Corpuscular HGB Conc 32.9 % (30-36); Mean Corpuscular Hemoglobin 27.5 PG (26-34); Mean Corpuscular Volume 83.6 fL (80-100); Monocytes Absolute Auto 500 /uL (0-900); Monocytes Percent Auto 9.9 % (3-14); Neutrophils Absolute Auto 2900 /uL (1500-7000); Platelet Count 190 X10^3/uL (150-400); Red Blood Cell Count 5.52 X10^6/uL (4.5-5.9); Red Cell Distribution Width 14.4 % (11.6-14.8); White Blood Cell Count 4.8 X10^3/uL (4.5-11.0)
[2022-07-21 10:42] LABS: Alanine Aminotransferase 41 IU/L (<50); Albumin 4.2 g/dL (3.5-5.0); Albumin Globulin Ratio 1.2 (1.0-2.8); Alkaline Phosphatase 83 U/L (38-126); Aspartate Aminotransferase 32 IU/L (17-59); BUN Creatinine Ratio 11.2 (6-22); Bilirubin Total 0.9 mg/dL (0.2-1.3); Blood Urea Nitrogen 10 mg/dL (9-20); Calcium 8.4 mg/dL (8.4-10.2); Carbon Dioxide 29 mmol/L (22-32); Chloride 99 mmol/L (98-107); Cholesterol 235 mg/dL (140-199); Estimated Glomerular Filt Rate > 60 mL/min (>60); Globulin 3.5 g/dL (1.7-4.1); Glucose 102 mg/dL (80-110); HDL Cholesterol 34 mg/dL (40-60); HEMOLYSIS 15 (0-50); LDL Cholesterol Calculated 162 mg/dL (<100); Potassium 3.7 mmol/L (3.4-5.1); Sodium 138 mmol/L (137-145); Total Protein 7.7 g/dL (6.3-8.2); Triglycerides 195 mg/dL (35-150)
[2022-07-21 11:07] LABS: Prostate Specific Antigen Scrn 1.74 ng/mL (0.1-4.0)
== END ==
PROVIDERS: Family Provider Family Medicine; PCP Family Medicine; Referring Provider Family Medicine; Visit Provider Family Medicine
DX: E78.2 Mixed hyperlipidemia (principal); I10 Essential (primary) hypertension; Z12.5 Encounter for screening for malignant neoplasm of prostate
CPT/HCPCS: 36415; 80053; 80061; 85025; G0103

== ENCOUNTER → 2023-01-26 08:12 | Outpatient (CLI) | payer BC, SELFPAY ==
[2023-01-26 08:44] LABS: Add Manual Diff / Slide Review NO; Basophils Absolute Auto 0 /uL (0-100); Basophils Percent Auto 0.4 % (0-2); Eosinophils Absolute Auto 100 /uL (0-450); Hematocrit 40.5 % (41-53); Hemoglobin 13.6 g/dL (13.5-17.5); Lymphocytes Absolute Auto 1100 /uL (1100-4500); Lymphocytes Percent Auto 20.7 % (25-40); Mean Corpuscular HGB Conc 33.6 % (30-36); Mean Corpuscular Hemoglobin 27.1 PG (26-34); Mean Corpuscular Volume 80.5 fL (80-100); Monocytes Absolute Auto 600 /uL (0-900); Monocytes Percent Auto 10.8 % (3-14); Neutrophils Absolute Auto 3400 /uL (1500-7000); Neutrophils Percent Auto 66.1 % (50-75); Platelet Count 174 X10^3/uL (150-400); Red Blood Cell Count 5.03 X10^6/uL (4.5-5.9); Red Cell Distribution Width 15.1 % (11.6-14.8); White Blood Cell Count 5.1 X10^3/uL (4.5-11.0)
[2023-01-26 09:01] LABS: Alanine Aminotransferase 30 IU/L (<50); Albumin Globulin Ratio 1.4 (1.0-2.8); Alkaline Phosphatase 75 U/L (38-126); Aspartate Aminotransferase 26 IU/L (17-59); BUN Creatinine Ratio 14.4 (6-22); Bilirubin Total 0.8 mg/dL (0.2-1.3); Blood Urea Nitrogen 13 mg/dL (9-20); Calcium 8.5 mg/dL (8.4-10.2); Carbon Dioxide 28 mmol/L (22-32); Chloride 104 mmol/L (98-107); Cholesterol 159 mg/dL (140-199); Estimated Glomerular Filt Rate > 60 mL/min (>60); Globulin 2.9 g/dL (1.7-4.1); Glucose 102 mg/dL (80-110); HDL Cholesterol 38 mg/dL (40-60); HEMOLYSIS < 15 (0-50); LDL Cholesterol Calculated 94 mg/dL (<100); Sodium 137 mmol/L (137-145); Total Protein 6.9 g/dL (6.3-8.2); Triglycerides 135 mg/dL (35-150)
[2023-01-26 10:15] LABS: Creatinine Urine Random 146.6 mg/dL
[2023-01-26 10:20] LABS: Microalbumi Creatinin Ratio Ur 8.1 ug/mg CR (<30); Microalbumin Urine Random 1.2 mg/dL (0-1.6)
[2023-01-26 18:03] LABS: Hep C Virus Ab w/Reflex Quant NEGATIVE s/c (NEGATIVE)
== END ==
PROVIDERS: Family Provider Family Medicine; PCP Family Medicine; Referring Provider Family Medicine; Visit Provider Family Medicine
DX: E78.2 Mixed hyperlipidemia (principal); H93.19 Tinnitus, unspecified ear; I10 Essential (primary) hypertension
CPT/HCPCS: 36415; 80053; 80061; 82043; 82570; 85025; 86803

== ENCOUNTER → 2023-05-09 12:36 | Day surgery (SDC) | payer OTHER, SELFPAY ==
[2023-05-09] VITALS (7 sets, daily range): BP systolic 99–143; BP diastolic 66–91; PULSE 61–89; RESP 13–20; TEMP 36.1–36.7; O2SAT 95–100; BMI 29.1
--- NOTE | 2023-05-09 | PATH_ITS ---
[facility] Accession Number: [id number] No. of containers..01 Tissue . 01 Material submitted: . rectum - RECTAL POLYP . 01 Diagnosis: Rectal Polyp, Biopsy: Hyperplastic polyp. MRV 05/22/2023 1455 Local . 01 Electronically signed: . Salima Arredondo MD, Pathologist NPI- [id number] . 01 Gross description: . RECTAL POLYP: Received in formalin are 4 fragment(s) of huitron, soft tissue measuring 0.1 x 0.1 x 0.1 cm to 0.5 x 0.3 x 0.3 cm submitted entirely in 1 cassette(s) /[place] 05/11/2023 2224 Local . 01 Pathologist provided ICD-10: D12.8 . 01 CPT . 139682 Specimen Comment: A courtesy copy of this report has been sent to [phone] Performed at: 01 [facility] [address] [place] [address], [place], [place] [id number] MD Forrest Kruger MD Phone: [phone]
[2023-05-09] MEDS: LACTATED RINGERS 1,000 ML 150 ML IV (13:55)
--- NOTE | 2023-05-09 14:35 | PM.HP.1 ---
History of Present Illness History of Present Illness Date Patient Seen: 05/09/23 Time Patient Seen: 14:35 Chief complaint: Colonoscopy Narrative: Is a 62-year-old man personal history of colonic polyps here for screening colonoscopy. Was recently a flexible sigmoidoscopy 2020. No family history of intestinal malignancy. No abdominal concerns today including but not limited to abdominal pain, unintentional weight loss, blood per rectum. [facility] Medical History Tinnitus Palpable mass of lower back Tinnitus Essential hypertension (~2019) Lipoma Hemorrhoids HTN (hypertension) Vision disorder Hearing deficit Shoulder pain (~2014) Family History Father No problems noted. Mother Cancer Social History marital status: household members: spouse occupational status: employed Smoking Status: Former smoker Tobacco: How many years used: 20 quit status: has quit before alcohol intake: current substance use type: does not use Meds Home Medications and Allergies Home Medications Medication Instructions Recorded Confirmed Type amlodipine 5 mg tablet See Rx Instructions .Route 06/14/22 05/09/23 Rx .COMPLEX #90 tabs enalapril 5 mg-hydrochlorothiazide 2 tab PO DAILY #180 tabs 06/21/22 05/09/23 Rx 12.5 mg tablet atorvastatin 10 mg tablet 10 mg PO DAILY #90 tabs 03/14/23 05/09/23 Rx Allergies Allergy/AdvReac Type Severity Reaction Status Date / Time rosuvastatin [From Crestor] AdvReac Verified 05/09/23 13:37 Exam Vital Signs (past 8 hours): - 05/09/23 13:40 Temperature 97.1 F L Pulse Rate 89 Respiratory Rate 18 Blood Pressure 143/91 H Pulse Oximetry 97 Oxygen Delivery Method Room Air Oxygen Delivery Method Room Air Narrative Exam Narrative: General adult man alert oriented no acute distress Chest nonlabored respiration Extremities warm well perfused Assessment & Plan Assessment and plan (1) Personal history of colonic polyps: Status: Acute Assessment & Plan narrative: The patient requires colorectal screening and colonoscopy is recommended. Technical details were discussed. Risks, benefits, alternatives explained. Risks including but not limited to myocardial infarction, aspiration, bleeding, pain, missed lesion, incomplete examination, need for further radiographic studies, colonic perforation, and need for major abdominal surgery were discussed. All questions were answered to their satisfaction, and they are in agreement with this plan.
--- NOTE | 2023-05-09 15:18 | P.OP.COLON_ITS ---
Operative Date/Time/Diagnoses Date of procedure: 05/09/23 Time of procedure: 15:18 Pre-op diagnosis: History of polyps Post-op diagnosis: other (Colonic polyps x3) Procedure & Clinicians Study performed: Sigmoidoscopy Indications: Personal history of colonic polyps Colorectal screening Surgeon: Pilo Strickland Procedure Notes Procedure in detail: The history and physical was performed/updated and the patient is ASA class is 2. The procedure was discussed in detail with the patient. Potential risks complications including infection, bleeding, missed diagnosis, perforation, need for surgery, and were explained. Their questions were answered and informed consent was obtained. Patient was brought to the procedure room and placed standard monitoring equipment. The patient's vital signs were monitored continuously throughout the entire procedure. Prior to starting time-out was performed. The patient was placed in the left lateral recumbent position. Procedural sedation was administered by anesthesia. Examination began with a thorough inspection of the perianal area there was no evidence of fissures, fistulae, external hemorrhoids or cutaneous malignancy. The colonoscopy scope was then placed into the anal canal and was advanced forward. We reached the level of the ascending colon but could not proceed any further due to the tortuosity of his colon. Multiple attempts with external compression stiffening of the scope repositioning were ineffective. The scope was then slowly withdrawn examining colon thoroughly in all directions, irrigating it of any residual stool. The scope was retroflexed within the rectum The patient tolerated the procedure well. They will be discharged once criteria are met. The prep was of poor quality. The withdrawl time was 7 minutes. FINDINGS * Rectum-Three polyps of approximally 3 mm each were removed with biopsy forceps * Tortuous colon Specimen(s): other (Rectal polyps) Impression: Colonic polyps x3 Incomplete colonoscopy Post-procedure Plan for aftercare: Barium enema Disposition: same day surgery
== END | disposition home or self-care (01) ==
PROVIDERS: Family Provider Family Medicine; PCP Family Medicine; Referring Provider Surgery; Visit Provider Surgery
PROC: 0DJD8ZZ Inspection of Lower Intestinal Tract, Via Natural or Artificial Opening Endoscopic (ICD-10-PCS; CPT 45378; principal; 2023-05-09 14:15)
DX: Z12.11 Encounter for screening for malignant neoplasm of colon (principal); Z86.010 Personal history of colon polyps; K62.1 Rectal polyp
CPT/HCPCS: 45380; J2704

== ENCOUNTER → 2023-05-31 12:42 | Outpatient (CLI) | payer OTHER, SELFPAY ==
--- NOTE | 2023-05-31 12:43 | DI.RAD.S_ITS ---
PROCEDURE: FL BARIUM ENEMA INDICATIONS: Incomplete colonoscopy COMPARISON: [facility], CT, CT ABDOMEN PELVIS W CON, 02/03/2020, 10:18. FINDINGS: KUB: Preprocedural cop breaker film demonstrates a normal bowel gas pattern. No suspicious abdominal calcifications. Visualized solid organ contours appear normal in size. No suspicious bony lesions. Colon: There is adequate opacification of the entire colon. The appendix is seen. No significant diverticulosis. No strictures or extrinsic mass effects are identified. No colonic fistulae or perforations. Colon caliber appears normal. The sigmoid colon is somewhat redundant. IMPRESSION: Opacification of the entire colon was achieved. No stricture or mass identified. No dilated loops of bowel. Sigmoid colon is somewhat redundant. Dictated by: Isauro Alston M.D. on 05/31/2023 at 14:30 Approved by: Isauro Alston M.D. on 05/31/2023 at 14:33
== END ==
PROVIDERS: Family Provider Family Medicine; PCP Family Medicine; Referring Provider Surgery; Visit Provider Surgery
DX: Z86.010 Personal history of colon polyps (principal); Z12.11 Encounter for screening for malignant neoplasm of colon
CPT/HCPCS: 74270

== ENCOUNTER → 2024-02-28 08:17 | Outpatient (CLI) | payer OTHER, SELFPAY ==
[2024-02-28 09:50] LABS: Add Manual Diff / Slide Review NO; Basophils Absolute Auto 0 /uL (0-100); Basophils Percent Auto 0.4 % (0-2); Eosinophils Absolute Auto 100 /uL (0-450); Eosinophils Percent Auto 2.1 % (2-4); Hematocrit 39.3 % (41-53); Hemoglobin 13.2 g/dL (13.5-17.5); Lymphocytes Absolute Auto 1100 /uL (1100-4500); Lymphocytes Percent Auto 20.9 % (25-40); Mean Corpuscular HGB Conc 33.6 % (30-36); Mean Corpuscular Hemoglobin 25.8 PG (26-34); Mean Corpuscular Volume 76.7 fL (80-100); Monocytes Absolute Auto 500 /uL (0-900); Monocytes Percent Auto 10.3 % (3-14); Neutrophils Absolute Auto 3400 /uL (1500-7000); Neutrophils Percent Auto 66.3 % (50-75); Platelet Count 182 X10^3/uL (150-400); Red Blood Cell Count 5.12 X10^6/uL (4.5-5.9); Red Cell Distribution Width 15.9 % (11.6-14.8); White Blood Cell Count 5.1 X10^3/uL (4.5-11.0)
[2024-02-28 10:20] LABS: Alanine Aminotransferase 38 IU/L (<50); Albumin 4.3 g/dL (3.5-5.0); Albumin Globulin Ratio 1.7 (1.0-2.8); Alkaline Phosphatase 93 U/L (38-126); Aspartate Aminotransferase 29 IU/L (17-59); BUN Creatinine Ratio 13.4 (6-22); Bilirubin Total 0.7 mg/dL (0.2-1.3); Blood Urea Nitrogen 13 mg/dL (9-20); Calcium 8.8 mg/dL (8.4-10.2); Carbon Dioxide 27 mmol/L (22-32); Chloride 103 mmol/L (98-107); Cholesterol 182 mg/dL (140-199); Estimated Glomerular Filt Rate > 60 mL/min (>60); Globulin 2.5 g/dL (1.7-4.1); Glucose 103 mg/dL (80-110); HDL Cholesterol 44 mg/dL (40-60); HEMOLYSIS < 15 (0-50); LDL Cholesterol Calculated 103 mg/dL (<100); Potassium 4.1 mmol/L (3.4-5.1); Sodium 137 mmol/L (137-145); Total Protein 6.8 g/dL (6.3-8.2); Triglycerides 175 mg/dL (35-150)
[2024-02-28 10:50] LABS: Prostate Specific Antigen Scrn 2.24 ng/mL (0.1-4.0); TSH w/ Reflex to FT4 1.85 uIU/mL (0.47-4.68)
[2024-02-29 03:36] LABS: Apolipoprotein B 99 mg/dL (<90)
[2024-03-01 03:11] LABS: Lipoprotein (a) <8.4 nmol/L (<75.0)
== END ==
PROVIDERS: Family Provider Family Medicine; PCP Family Medicine; Referring Provider Family Medicine; Visit Provider Family Medicine
DX: Z00.00 Encounter for general adult medical examination without abnormal findings (principal); Z12.5 Encounter for screening for malignant neoplasm of prostate; I10 Essential (primary) hypertension; E78.2 Mixed hyperlipidemia
CPT/HCPCS: 36415; 80053; 80061; 82172; 83695; 84443; 85025; G0103

== ENCOUNTER → 2024-03-20 09:33 | Outpatient (CLI) | payer OTHER, SELFPAY ==
--- NOTE | 2024-03-20 09:37 | DI.CT.S_ITS ---
PROCEDURE: CT SINUS SCREEN WO CON INDICATIONS: Sinus congestion and LAY not improved w/antibiotic TECHNIQUE: Noncontrast 3.0 mm axial images acquired from the frontal sinuses to the mid-sella, with coronal and sagittal reformats. For radiation dose reduction, the following was used: automated exposure control, adjustment of mA and/or kV according to patient size. COMPARISON: None. FINDINGS: Image quality: Excellent. Maxillary Sinuses: No bony remodeling or destruction. Moderate left maxillary sinus mucous retention cyst. Otherwise, the maxillary sinuses are clear.. Ethmoid Air Cells: No bony remodeling or destruction. Sinuses are clear. Sphenoid Sinuses: No bony remodeling or destruction. Sinuses are clear. Frontal Sinuses: No bony remodeling or destruction. Sinuses are clear. Ostiomeatal Complexes: Ostiomeatal complexes are patent. No Beka cells. Miscellaneous: Visualized intra-orbital contents are normal. No heather bullosa or paradoxical turbinate curvature. Leftward nasal septal deviation with spurring. IMPRESSION: Moderate left maxillary sinus mucous retention cyst. Otherwise, the paranasal sinuses are clear. Dictated by: Eulalio Dillard M.D. on 03/20/2024 at 16:52 Approved by: Eulalio Dillard M.D. on 03/20/2024 at 16:54
== END ==
PROVIDERS: Family Provider Family Medicine; PCP Family Medicine; Referring Provider Physician Assistant; Visit Provider Physician Assistant
DX: J34.1 Cyst and mucocele of nose and nasal sinus (principal); J34.2 Deviated nasal septum; R09.81 Nasal congestion; R51.9 Headache, unspecified; R09.82 Postnasal drip
CPT/HCPCS: 70486

== ENCOUNTER → 2024-04-16 07:21 | Outpatient (CLI) | payer OTHER, SELFPAY ==
[2024-04-16 08:20] LABS: Add Manual Diff / Slide Review NO; Basophils Absolute Auto 0 /uL (0-100); Basophils Percent Auto 0.3 % (0-2); Eosinophils Absolute Auto 100 /uL (0-450); Eosinophils Percent Auto 1.7 % (2-4); Hematocrit 40.6 % (41-53); Hemoglobin 13.5 g/dL (13.5-17.5); Lymphocytes Absolute Auto 1600 /uL (1100-4500); Mean Corpuscular HGB Conc 33.1 % (30-36); Mean Corpuscular Hemoglobin 26.1 PG (26-34); Mean Corpuscular Volume 78.7 fL (80-100); Monocytes Absolute Auto 600 /uL (0-900); Monocytes Percent Auto 10.8 % (3-14); Neutrophils Absolute Auto 3200 /uL (1500-7000); Neutrophils Percent Auto 58.2 % (50-75); Platelet Count 164 X10^3/uL (150-400); Red Blood Cell Count 5.15 X10^6/uL (4.5-5.9); White Blood Cell Count 5.4 X10^3/uL (4.5-11.0)
[2024-04-16 08:40] LABS: HEMOLYSIS < 15 (0-50); Iron 30 ug/dL (49-181)
[2024-04-16 08:52] LABS: Percent Iron Saturation 7 % (20-50); Total Iron Binding Capacity 403 ug/dL (261-462); Transferrin 307 mg/dL (206-381)
[2024-04-16 09:42] LABS: Ferritin 6 ng/mL (18-464)
== END ==
PROVIDERS: Family Provider Family Medicine; PCP Family Medicine; Referring Provider Family Medicine; Visit Provider Family Medicine
DX: H91.90 Unspecified hearing loss, unspecified ear (principal); I10 Essential (primary) hypertension; E78.2 Mixed hyperlipidemia; D50.9 Iron deficiency anemia, unspecified; Z86.0100 Personal history of colon polyps, unspecified
CPT/HCPCS: 36415; 82728; 83540; 83550; 85025

== ENCOUNTER → 2024-04-18 12:17 | Outpatient (CLI) | payer OTHER, SELFPAY ==
[2024-04-18 13:18] LABS: BUN Creatinine Ratio 14.8 (6-22); Blood Urea Nitrogen 13 mg/dL (9-20); Calcium 8.9 mg/dL (8.4-10.2); Carbon Dioxide 29 mmol/L (22-32); Chloride 106 mmol/L (98-107); Estimated Glomerular Filt Rate > 60 mL/min (>60); Glucose 97 mg/dL (80-110); HEMOLYSIS < 15 (0-50); Potassium 4.2 mmol/L (3.4-5.1); Sodium 139 mmol/L (137-145)
== END ==
PROVIDERS: Family Provider Family Medicine; PCP Family Medicine; Referring Provider Surgery; Visit Provider Surgery
DX: D50.9 Iron deficiency anemia, unspecified (principal)
CPT/HCPCS: 36415; 80048

== ENCOUNTER → 2024-04-20 09:22 | Outpatient (CLI) | payer OTHER, SELFPAY ==
--- NOTE | 2024-04-20 09:23 | DI.CT.S_ITS ---
PROCEDURE: CT ABDOMEN PELVIS W CON INDICATIONS: Abdominal pain incomplete colonoscopy TECHNIQUE: After the administration of intravenous contrast, axial sections acquired from the lung bases to the pubic symphysis. Coronal and sagittal reformats were performed. For radiation dose reduction, the following was used: automated exposure control, adjustment of mA and/or kV according to patient size. COMPARISON: [facility], CT, CT ABDOMEN PELVIS W CON, 02/03/2020, 10:18. FINDINGS: Image quality: Diagnostic. Lower Chest: Cardiomegaly ABDOMEN: Liver: No solid mass. Gallbladder: No radiopaque gallstones or wall thickening. Biliary ducts: No biliary dilation. Pancreas: No ductal dilation. Spleen: Size is within normal limits. Adrenal Glands: No adrenal nodules. Kidneys and Ureters: No hydronephrosis. No solid mass. No complex renal cystic lesion which requires follow up. Stomach and Bowel: Normal colonic caliber, without significant wall thickening. No obstructing colonic mass. Redundant sigmoid colon. Normal appendix. Peritoneum: No abnormal intraperitoneal fluid. No free air. Ventral Wall: No significant ventral hernia. Abdominal Nodes: No retroperitoneal or mesenteric adenopathy by size criteria. Vessels: Aorta and inferior vena cava are normal in size. PELVIS: Pelvic Organs: Unremarkable. Bladder: No bladder wall thickening, accounting for underdistention. Pelvic Nodes: No enlarged lymph nodes. Miscellaneous: Small inguinal hernias containing fat. Bones: No aggressive osseous abnormality. Degenerative disc disease of the lumbar spine. IMPRESSION: No obstructing colonic mass. Dictated by: Mcikey Acosta M.D. on 04/20/2024 at 11:48 Approved by: Mickey Acosta M.D. on 04/20/2024 at 11:52
== END ==
PROVIDERS: Family Provider Family Medicine; PCP Family Medicine; Referring Provider Surgery; Visit Provider Surgery
DX: D64.9 Anemia, unspecified (principal); Q43.8 Other specified congenital malformations of intestine; I51.7 Cardiomegaly; K40.90 Unilateral inguinal hernia, without obstruction or gangrene, not specified as recurrent; M51.369 Other intervertebral disc degeneration, lumbar region without mention of lumbar back pain or lower extremity pain
CPT/HCPCS: 74177; Q9967

== ENCOUNTER 2024-04-26 11:19 | Day surgery (SDC) | payer OTHER, SELFPAY ==
--- NOTE | 2024-04-26 | PATH_ITS ---
[facility] Accession Number: [id number] No. of containers..01 Tissue . 01 Material submitted: . duodenum - DUODENUM . 01 Diagnosis: DUODENUM, BIOPSY: Duodenal mucosa with patchy gastric surface foveolar metaplasia and occasional neutrophils in the lamina propria, consistent with peptic duodenitis. Negative for intraepithelial lymphocytosis or villous blunting. Negative for dysplasia and malignancy. MRV 05/01/2024 1545 Local . 01 Electronically signed: . Janiya Maddox MD, Pathologist NPI- [id number] . 01 Gross description: . DUODENUM: Received in formalin is 1 fragment(s) of huitron, soft tissue measuring 0.3 x 0.2 x 0.2 cm submitted entirely in 1 cassette(s) /[place] 04/30/2024 0057 Local . 01 Pathologist provided ICD-10: D50.9 . 01 CPT . 079097 Specimen Comment: A courtesy copy of this report has been sent to [phone] Performed at: [address] [id number] MD Forrest Kruger MD Phone: [phone]
[2024-04-26 12:03] VITALS: BP 171/100; PULSE 68; RESP 16; TEMP 36.2; O2SAT 98
--- NOTE | 2024-04-26 12:25 | PM.PREOP ---
Pre-operative Note Interval Note History & Physical reviewed/Exam performed by Physician: Yes Changes to H&P: No
[2024-04-26 12:59] VITALS: BP 156/106; PULSE 100; RESP 15; TEMP 36.1; O2SAT 95
[2024-04-26 13:05] VITALS: BP 152/107; PULSE 84; RESP 12; O2SAT 97
--- NOTE | 2024-04-26 13:05 | PM.OP.EGD ---
Operative Date/Time/Diagnoses Date of procedure: 04/26/24 Time of procedure: 13:05 Pre-op diagnosis: Anemia Post-op diagnosis: other (Duodenitis) Procedure & Clinicians Study performed: Esophagogastroduodenoscopy Same procedure as scheduled: Yes Indications: Anemia Surgeon: Pilo Strickland Procedure Notes Procedure in detail: The history and physical was performed/updated and the patient is ASA class is 2. The procedure was discussed in detail with the patient. Potential risks complications including infection, bleeding, missed diagnosis, perforation, need for surgery, and were explained. Their questions were answered and informed consent was obtained. Patient placed in left lateral decubitus position. Time out was performed. Procedural sedation was administered by Anesthesia. A bite block was placed. the scope was inserted into the mouth and advanced through the esophagus and into the stomach. The pylorus was intubated and the duodenum was examined to the 2nd portion. The scope was then withdrawn into the stomach and was retroflexed. The stomach was decompressed and scope was withdrawn slowly through the esophagus. FINDINGS -mild gastritis and duodenitis. Biopsies of duodenum taken with forceps. -small hiatal hernia The patient tolerated the procedure well and will be discharged when they meet criteria. Specimen(s): other (Duodenum) Impression: Resolving duodenitis Post-procedure Recommendations: Start medication(s) (Pepcid) Disposition: same day surgery
[2024-04-26 13:11] VITALS: BP 152/107; PULSE 62; RESP 14; O2SAT 96
[2024-04-26 13:14] VITALS: BP 168/103; PULSE 63; RESP 11; TEMP 36.1; O2SAT 97
== END 2024-04-26 14:02 | disposition home or self-care (01) ==
PROVIDERS: Family Provider Family Medicine; PCP Family Medicine; Referring Provider Surgery; Visit Provider Surgery
PROC: 0DJ08ZZ Inspection of Upper Intestinal Tract, Via Natural or Artificial Opening Endoscopic (ICD-10-PCS; CPT 43239; principal; 2024-04-26 12:30)
DX: D50.9 Iron deficiency anemia, unspecified (principal); K29.70 Gastritis, unspecified, without bleeding; K29.80 Duodenitis without bleeding
CPT/HCPCS: 43239; J2704

== ENCOUNTER → 2025-03-27 14:55 | Outpatient (CLI) | payer OTHER, SELFPAY ==
--- NOTE | 2025-03-27 14:56 | DI.US.S_ITS ---
PROCEDURE: US HERNIA INDICATIONS: left inguinal pain TECHNIQUE: Real-time focused scanning was performed of the inguinal region, with image documentation. COMPARISON: None. FINDINGS: Left inguinal fascial defect is seen measures approximately 1.5 x 1.4 cm in size with herniation sac measures 5.2 x 1.9 x 3.5 cm in size containing fat only. The herniation sac is fully reducible. IMPRESSION: Fully reducible left inguinal hernia containing fat only. Dictated by: Carlin Shaw M.D. on 03/27/2025 at 17:12 Approved by: aCrlin Shaw M.D. on 03/27/2025 at 17:13
== END ==
LOC: US 14:55
PROVIDERS: PCP Family Medicine; Referring Provider Family Medicine; Visit Provider Family Medicine
DX: K40.90 Unilateral inguinal hernia, without obstruction or gangrene, not specified as recurrent (principal); R10.32 Left lower quadrant pain
CPT/HCPCS: 76705

== ENCOUNTER 2025-06-03 06:25 | Day surgery (SDC) | payer OTHER, SELFPAY ==
[2025-05-28 13:41] VITALS: BMI 31.4
[2025-06-03 06:44] VITALS: BP 141/86; PULSE 72; RESP 17; TEMP 36.4; O2SAT 96
[2025-06-03] MEDS: LACTATED RINGERS 1,000 ML 42 ML IV (06:57)
[2025-06-03] MEDS: ACETAMINOPHEN 325 MG TABLET 975 MG PO (06:57)
--- NOTE | 2025-06-03 07:03 | PM.HP.IH.1 ---
History of Present Illness History of Present Illness Date Patient Seen: 06/03/25 Chief complaint: Left Laparoscopic Inguinal Hernia Repair Narrative: Patient presents for laparoscopic left inguinal hernia repair today. [facility] Medical History (Updated 04/28/25 @ 15:55 by Kodi Leija MD) Tinnitus Palpable mass of lower back Tinnitus Essential hypertension (~2019) Lipoma Hemorrhoids HTN (hypertension) Vision disorder Hearing deficit Shoulder pain (~2014) Surgical History (Updated 05/28/25 @ 13:45 by Maye Laguerre RN) History of esophagogastroduodenoscopy (EGD) (04/26/24) Family History Father No problems noted. Mother Cancer Social History marital status: household members: spouse lives independently: Yes occupational status: employed Smoking Status: Former smoker Tobacco: How many years used: 20 quit status: has quit before alcohol intake: current substance use type: does not use Meds Home Medications and Allergies Home Medications ?Medication ?Instructions ?Recorded ?Confirmed ?Type amlodipine 10 mg tablet 10 mg PO DAILY #90 tabs 03/25/25 06/03/25 Rx atorvastatin 10 mg tablet 10 mg PO DAILY #90 tabs 03/25/25 04/28/25 Rx olmesartan 40 1 tab PO DAILY #90 tabs 03/25/25 06/03/25 Rx mg-hydrochlorothiazide 12.5 mg tablet sildenafil 50 mg tablet See Rx Instructions PO DAILY PRN 03/25/25 06/03/25 Rx sexual activity #30 tabs ferrous sulfate 325 mg (65 mg 325 mg PO Q OTHER DAY 04/28/25 04/28/25 History iron) tablet Allergies Allergy/AdvReac Type Severity Reaction Status Date / Time rosuvastatin (From Crestor) AdvReac Verified 06/03/25 06:41 Exam Vital Signs (past 8 hours): - 06/03/25 06:44 Temperature 97.5 F L Pulse Rate 72 Respiratory Rate 17 Blood Pressure 141/86 H Pulse Oximetry 96 Oxygen Delivery Method Room Air Oxygen Delivery Method Room Air Narrative Exam Narrative: Const General: healthy appearing, comfortable and no acute distress Orientation: alert and oriented x3 HENMT Ears: hearing grossly normal bilaterally Eyes Visual Ashford: normal visual ashford by confrontation Conjunctivae: conjunctivae normal Sclera: sclerae normal EOM: EOM intact bilaterally Resp Effort & Inspection: normal respiratory effort and able to speak in complete sentences Cardio Rate: regular rate GI Palpation: soft (NT) +LIH Extrem General: no pedal edema and no calf tenderness Assessment & Plan Assessment and plan (1) Left inguinal hernia: Status: Acute Plan Left inguinal hernia with cord lipoma. Plan laparoscopic left inguinal hernia repair with mesh (TEP). The risks, benefits and options regarding the procedure were explained to the patient in detail. Risk discussion included but not limited to: infection, bleeding, bruising, urinary retention, recurrence, 6 weeks no lifting. The patient was encouraged to ask questions and they were answered to their satisfaction. The patient understands and is agreeable to proceed. Time-Based Coding :: [TOTAL MINUTES] spent with patient and on the chart (including review of chart, obtaining history, exam, reviewing outside data, placing orders, documenting exam and treatment plan, and counseling patient) on [DATE]. PROFEE Administrative Assistant Receptionist Document charge(s): Yes Charge Codes Inpatient/observation care including admit and discharge same day: [id number]
--- NOTE | 2025-06-03 08:03 | SUR.OPER ---
Supine on padded OR bed with pink pad positioner, head on pillow, arms padded and tucked at sides, purple safety strap across chest, legs uncrossed, safety belt at thigh, tape over blanket over lower legs.
--- NOTE | 2025-06-03 08:32 | PM.OP.1 ---
Operative Date/Time/Diagnoses Date of procedure: 06/03/25 Time of procedure: 08:32 Pre-op diagnosis: Left inguinal hernia Post-op diagnosis: same (Large lipoma of the cord, small indirect inguinal hernia) Procedure & Clinicians Procedure: Laparoscopic left inguinal hernia repair with mesh (TEP) Same procedure(s) as scheduled: Yes Indications: 64yo M with symptomatic LIH Surgeon: Kodi Leija Assisted?: Yes Director Of Corporate Sales: Pramod Coates Anesthesia Type: General Operative Notes Findings: Large left cord lipoma, small indirect inguinal hernia Closure Type: primary Specimen(s): none sent Prosthetic devices, grafts, tissues, transplants, or devices: mesh Applied: other (mesh) Estimated Blood Loss (mL): 5 Blood products transfused: none Procedure in detail: After informed consent and satisfactory general endotracheal anesthesia, the groins were shaved, prepped and draped in the usual sterile manner.? The patient received appropriate preoperative antibiotics and DVT prophylaxis.? Surgical time-out was performed with all team members in agreement.? The correct side was marked in the preoperative holding area.? The preperitoneal space was entered via an infraumbilical incision.? An 0 Vicryl [id number] suture was placed on the anterior rectus sheath incision lateral to midline, ipsilateral to the side of the hernia.? The rectus muscle was retracted laterally and the preperitoneal space was dissected with a blunt 10 mm instrument.? The 10 mm trocar was inserted and the preperitoneal space was insufflated to a pressure of 12 mmHg with carbon dioxide gas.? This allowed direct visual placement of two 5 mm trocars in the suprapubic midline.? The patient was placed in Trendelenburg position.? We further dissected the preperitoneal space including the femoral, direct and indirect spaces.? We dissected out lateral and an ilioinguinal nerve block was performed under direct vision by injecting 10 cc of 0.5% Marcaine with epinephrine into the transversus muscle under direct vision 2 fingerbreadths medial to the anterior superior iliac spine.? A total of 30 cc of 0.5% Marcaine with epinephrine was used.? The remainder was injected into the musculature at the end of the procedure for postoperative analgesia.? Once the preperitoneal space was dissected free we noticed a large lipoma of the cord and a small indirect inguinal hernia. There were no direct or femoral defects.? The peritoneum was dissected proximally off of the cord structures to allow room for the mesh.?A 3x6cm piece of marlex mesh was customized and inserted into the preperitoneal space and unrolled until it was in perfect position and noted to lay in a flat position without wrinkling.? The mesh covered all 3 potential hernia defects widely.? Hemostasis was excellent throughout. I held the large lipoma cephalad to the mesh.? I held the lower border of the mesh with the grasper as we released the carbon dioxide and the peritoneum was noted to relax in a very pleasing manner against the mesh holding it in place.? No tacking or fixation was required. The trocars were removed and there was no bleeding noted at the trocar sites.? The 0 Vicryl [id number] suture was tied on the umbilical fascia with no palpable fascial defects.? The skin incisions were closed using 4-0 Monocryl in a subcuticular manner.? Dermabond glue was applied as a final dressing.? The instrument, sponge and needle counts were all correct x2.? The patient tolerated the procedure well and was extubated in the operating room and transported to the recovery area in stable condition. Complications: none Post-operative Condition: stable Disposition: PACU Plan for aftercare: PACU then home
[2025-06-03 08:43] VITALS: BP 149/87; PULSE 102; RESP 20; TEMP 36.9; O2SAT 94
[2025-06-03 08:48] VITALS: BP 134/63; PULSE 79; RESP 20; O2SAT 93
[2025-06-03 08:56] VITALS: BP 142/78; PULSE 73; RESP 16; O2SAT 95
[2025-06-03 09:01] VITALS: BP 122/77; PULSE 68; RESP 22; TEMP 36.9; O2SAT 94
[2025-06-03] MEDS: BENZOCAINE/MENTHOL 1 LOZ PKT 1 EACH PO (09:13)
[2025-06-03 09:30] VITALS: BP 135/87; PULSE 75; RESP 18; O2SAT 98
== END 2025-06-03 09:30 | disposition home or self-care (01) ==
PROVIDERS: PCP Family Medicine; Referring Provider Surgery; Visit Provider Surgery
PROC: 0YQ64ZZ Repair Left Inguinal Region, Percutaneous Endoscopic Approach (ICD-10-PCS; CPT 49650; principal; 2025-06-03 07:45)
DX: Z87.891 Personal history of nicotine dependence (principal); K40.90 Unilateral inguinal hernia, without obstruction or gangrene, not specified as recurrent; D17.6 Benign lipomatous neoplasm of spermatic cord
CPT/HCPCS: 49650; C1781; J0330; J0689; J1100; J1885; J2405; J2704; J3010; J3490; J7120